=== PATIENT | male | born 1990 | race African-American/Black ===

== ENCOUNTER 2023-05-16 07:54 | Emergency (ER) | payer SELFPAY | END 2023-05-16 10:15 | disposition home or self-care (01) | LOC: ERS 07:54 | DX: S02.609A Fracture of mandible, unspecified, initial encounter for closed fracture (principal); W21.03XA Struck by baseball, initial encounter; Y93.64 Activity, baseball; Z55.6 Problems related to health literacy; Z75.3 Unavailability and inaccessibility of health-care facilities | CPT/HCPCS: 99283 ==